=== PATIENT | female | born 1990 | race Caucasian/White ===

== ENCOUNTER 2022-05-11 10:11 | Emergency (ER) | payer OTHER ==
[~2022-05-11] VITALS: Ht 12.7 cm; Wt 1.4 kg
[2022-05-11 10:14] VITALS: BP 119/96
--- NOTE | 2022-05-11 10:19 | NUR ---
PT W/C ASISTED TO BED 4.
[2022-05-11] MEDS ORDERED: IBUP-2213 PO (11:56)
[2022-05-11 12:28] VITALS: BP 111/85
--- NOTE | 2022-05-11 12:28 | NUR ---
Patient discharged with v/s stable. Written and verbal after care instructions given and explained. Patient alert, oriented and verbalized understanding of instructions. Ambulatory with steady gait. All questions addressed prior to discharge. ID band removed. Patient advised to follow up with PMD.NO Rx of given. Patient educated on indication of medication including possible reaction and side effects. Opportunity to ask questions provided and answered.
--- NOTE | 2022-05-11 12:28 | NUR ---
Note domingo in EDM - 05/11/22 at 1737 by RENEE Patient discharged with v/s stable. Written and verbal after care instructions given and explained for Ankle Sprain. Patient alert, oriented and verbalized understanding of instructions. Ambulatory with steady gait. All questions addressed prior to discharge. ID band removed. Patient advised to follow up with PMD. Rx of Ibuprofen given. Patient educated on indication of medication including possible reaction and side effects. Opportunity to ask questions provided and answered.
== END 2022-05-11 12:28 | disposition home or self-care (01) ==
LOC: MED 10:11
DX: M25.572 Pain in left ankle and joints of left foot (principal)
CPT/HCPCS: 29515; 73610; 99283; Q0092